=== PATIENT | male | born 1945 | race Caucasian/White ===

== ENCOUNTER 2016-12-20 06:21 | Inpatient (IN) | payer MEDICARE, BC ==
[2016-12-13 20:05] LABS: HEMATOCRIT 44.8 % (40.0-51.0); HEMOGLOBIN 15.1 g/dL (13.6-17.8)
[2016-12-13 20:19] LABS: CHLORIDE, SERUM 105 MMOL/L (96-112); CO2 (CARBON DIOXIDE) 25 MMOL/L (24-34); CREATININE 1.19 MG/DL (0.70-1.30); GFR AFRICAN AMERICAN 70 ML/MIN (>=60); GFR NON AFRICAN AMERICAN 61 ML/MIN (>=60); GLUCOSE, SERUM 81 MG/DL (60-99); POTASSIUM, SERUM 4.5 MMOL/L (3.5-5.3); SODIUM, SERUM 142 MMOL/L (135-148)
[2016-12-13 20:21] LABS: BUN (BLOOD UREA NITROGEN) 25 MG/DL (6-23); CALCIUM, SERUM 9.7 MG/DL (8.5-10.4)
--- NOTE | ~2016-12-20 | CN ---
Consultation Report [address] [place]. [address] NAME: HIPOLITO PUTNAM : 43 STATUS : ADM IN PAT#: [id number] AGE: 71 ADM/REG DATE : 12/20/16 MR#: [id number] REPORT SERV DATE: 12/23/16 DICTATED BY: EDNA GUNN DATE: 12/22/16 REPORT STATUS : Draft TRANSCRIBED BY: MODL DATE: 12/22/16 HOSPITALIST CONSULTATION DATE OF CONSULTATION: 12/21/2016 REASON FOR CONSULTATION: Hypertension per Dr. Nuñez. HISTORY OF PRESENT ILLNESS: This is an awake, alert, and oriented pleasant 71-year-old male, who was admitted to Dr. Oscar Nuñez on 12/20/2016 for lumbar fusion and L3- L4/L5-S1 facetectomy. We have been asked to see him at this time for management of persistent high blood pressure. The patient is currently taking his home medication lisinopril for hypertension and reports no difficulty in taking this medication. At this time, he is complaining only of back pain related to his most recent surgery as well as constipation with bloating in his abdomen. He says his last bowel movement was on 12/19/2016. At this time, he denies chest pain, palpitations, dyspnea, headache, dizziness, nausea, and vomiting. PAST MEDICAL HISTORY: Significant for: 1. Hypertension. 2. Bilateral cataracts. 3. Arthritis. 4. Low back pain. 5. Right lower extremity radiculopathy. 6. Esophagitis. 7. GERD. 8. Hypothyroidism. PAST SURGICAL HISTORY: Significant for: 1. Right leg vein stripping, 2010. 2. EGD with esophageal dilation, 2011. 3. Colonoscopy, 2016. 4. Left toe surgery, 2012. 5. Right knee scope, 2010. 6. Right inguinal hernia repair, 2006. 7. Appendectomy, age 17. 8. Tonsillectomy, age 5. 9. Right TKA, 2012. 10.Bilateral carpal tunnel release, 2006. 11.Rhinoplasty, 2009. 12.Lumbar fusion, 2014. 13.Lumbar fusion with facetectomy, 12/20/2016. The patient's PCP is Dr. Kwan, who he see every 6 months. SOCIAL HISTORY: The patient is and retired. Lives at home with his . Reports Consultation Report [facility] [address] [place]. [address] NAME: HIPOLITO PUTNAM : 43 STATUS : ADM IN PAT#: [id number] AGE: 71 ADM/REG DATE : 12/20/16 MR#: [id number] REPORT SERV DATE: 12/23/16 DICTATED BY: EDNA GUNN DATE: 12/22/16 REPORT STATUS : Draft TRANSCRIBED BY: MODL DATE: 12/22/16 smoking cigarettes for 45 years with a quit date of 2009. He drinks alcohol socially, less than 2 drinks weekly and denies illicit drug use. FAMILY HISTORY: Mother had a history of low blood sugar and father had a history of hiatal hernia. ALLERGIES: 1. OXYCODONE. 2. WASP STINGS. HOME MEDICATIONS: 1. Levothyroxine 75 mcg p.o. every morning. 2. Lisinopril 20 mg p.o. daily. 3. Testosterone cypionate 100 mg IM every 2 weeks. 4. Tylenol 325 mg p.o. q.4 hours p.r.n. 5. Daily vitamin. REVIEW OF SYSTEMS: A complete 10-point review of systems was negative except as per HPI. PHYSICAL EXAMINATION: VITAL SIGNS: T 97.6, P 105, RR 14, BP 133/84, and SpO2 of 94% on 2 L nasal cannula. GENERAL: A well-appearing male in no acute distress. Note, the patient is on strict bed rest with head of bed flat per Ortho order. Lumbar surgical dressing clean, dry, and intact. YISEL drain - lumbar - to bulb suction. NEUROLOGIC: Awake, alert, and oriented x3 without focal deficit. HEENT: Normocephalic and atraumatic without lymphadenopathy. NECK: Supple. No JVD. LUNGS: CTA in all lung leiva with normal respiratory effort. CV: Regular rate and rhythm. S1, S2 auscultated without murmur, rub, gallop, or click. ABDOMEN: Soft, round, nontender, and mildly distended. Bowel sounds active in all quadrants. No masses. EXTREMITIES: No cyanosis or edema. Cap refill within normal limits. Normal distal pulses. PSYCHIATRIC: Normal affect. SKIN: Clean, dry, and intact with mucous membranes pink and moist. ASSESSMENT AND PLAN: 1. Hypertension. This is chronic, and the patient has had his home medications continued. We will add p.r.n. coverage and monitor his labs at this time. Ensure pain control. 2. Constipation, this is acute, we will continue his current bowel regimen and we will add Reglan before every meal and at every bedtime and monitor. 3. GERD, this is chronic, and we will continue his current medications including the p.r.n. medications. We will add Reglan as mentioned above and monitor his labs. 4. Hypothyroid, this is chronic and well controlled. He follows with his PCP regularly every 6 months with recent lab work. We will continue his current treatment and Consultation Report [facility] [address] [place]. [address] NAME: HIPOLITO PUTNAM : 43 STATUS : ADM IN [facility]#: [id number] AGE: 71 ADM/REG DATE : 12/20/16 MR#: [id number] REPORT SERV DATE: 12/23/16 DICTATED BY: EDNA GUNN DATE: 12/22/16 REPORT STATUS : Draft TRANSCRIBED BY: MODL DATE: 12/22/16 monitor his labs. 5. Post lumbar fusion, he is postop day #1, and we will defer to the primary team for management of this issue. Thank you for this consult. We are pleased to follow this patient with you. This consult was completed through thorough review of [employer], old records, [employer], current chart, and through thorough interview with the patient. ADDENDUM: At 0500, stat KUB was done for increasing abdominal distention, reviewed by Dr. Zhou, supervising physician, who ordered NG tube to low intermittent wall suction for ileus. [facility]/JINNY Edna Gunn NP / [id number] CC: Narcisa Ann II, MD
--- NOTE | ~2016-12-20 | CN ---
Consultation Report [facility] [address] [place]. [address] NAME: HIPOLITO PUTNAM : 43 STATUS : ADM IN [facility]#: [id number] AGE: 71 ADM/REG DATE : 12/20/16 MR#: [id number] REPORT SERV DATE: 12/23/16 DICTATED BY: ELLA COBB DATE: 12/22/16 REPORT STATUS : Draft TRANSCRIBED BY: MODL DATE: 12/22/16 CONSULTATION DATE OF CONSULTATION: REASON FOR EVALUATION: Colonic ileus. HISTORY OF PRESENT ILLNESS: Mr. Putnam is a very pleasant 71-year-old man who has been in good health. He underwent surgical therapy for radiculopathy and spinal stenosis this admission. He has experienced a CSF leak. He has developed an ileus with distention of the abdomen yesterday associated with nausea. Attempts were made by multiple nursing staff and subsequently by the radiologist to pass an NG tube, including a 10-Turkmen tube which was not successful. He has passed flatus today, with some improvement in his distention. He has not had a bowel movement. He does not experience constipation at home. He has undergone colonoscopy by a provider in the [facility] as recently as this year with no history of obstruction. PAST MEDICAL HISTORY: He has had orthopedic surgical procedures and a right inguinal hernia repair but has otherwise been in good health. He has hypothyroidism and hypertension. ALLERGIES: OXYCODONE AND WASP STINGS. SOCIAL HISTORY: He uses occasional alcohol. He has a remote history of smoking. FAMILY HISTORY: Noncontributory. PHYSICAL EXAMINATION: GENERAL: Reveals a man who appears younger than his stated age. Resting on his left side. In no acute distress. Afebrile. Skin is warm and dry. HEENT: No icterus. CHEST: Clear to auscultation. CARDIAC: Regular rate and rhythm. Normal S1, S2. GASTROINTESTINAL: Abdomen is mildly distended. Bowel sounds are present but decreased. There are some palpable loops in the upper abdomen, however, it is soft and without tenderness. EXTREMITIES: Warm with intact pulses. LABORATORY DATA: Sodium 138, potassium 3.4, BUN 11, creatinine 0.85, magnesium not done, calcium 8.4. White blood cell count 14.8, hemoglobin 16, and platelets 204,000. KUB demonstrates constipation with some distention of the small bowel and colon. No intraperitoneal air. IMPRESSION: Colonic ileus with constipation. Mild hypokalemia, decreased mobility, and Dilaudid are likely contributors. Consultation Report [facility] [address] [place]. [address] NAME: HIPOLITO PUTNAM : 43 STATUS : ADM IN PAT#: [id number] AGE: 71 ADM/REG DATE : 12/20/16 MR#: [id number] REPORT SERV DATE: 12/23/16 DICTATED BY: ELLA COBB DATE: 12/22/16 REPORT STATUS : Draft TRANSCRIBED BY: JINNY DATE: 12/22/16 RECOMMENDATION: 1. Milk of magnesia, followed by p.o. fluids for osmotic effect. 2. Dulcolax suppository followed by warm tap water enema. 3. If above is unsuccessful, we will plan single dose of methylnaltrexone. 4. Correct potassium. Thank you for asking me to participate in his management. This management plan was discussed with the patient who agrees. [facility]/JINNY Ella Cobb M.D. / [id number] CC: Narcisa Ann II, MD
--- NOTE | ~2016-12-20 | OP ---
Record Of Operation [facility] [address] [place]. [address] NAME: HIPOLITO PUTNAM : 43 STATUS : ADM IN PAT#: [id number] AGE: 71 ADM/REG DATE : 12/20/16 MR#: [id number] REPORT SERV DATE: 12/23/16 DICTATED BY: JESSICA NUÑEZ II DATE: 12/22/16 REPORT STATUS : Draft TRANSCRIBED BY: MODNova DATE: 12/22/16 DATE OF PROCEDURE: 12/20/2016 PREOPERATIVE DIAGNOSES: 1. History of L4-5 fusion. 2. L3-4 stenosis. 3. Mild L5-S1 stenosis. 4. Severe right lower extremity radiculopathy. POSTOPERATIVE DIAGNOSES: 1. History of L4-5 fusion. 2. L3-4 stenosis. 3. Mild L5-S1 stenosis. 4. Severe right lower extremity radiculopathy. PROCEDURES: 1. Lumbar laminectomy and facetectomy for decompression of the L3 and L4 nerve roots. 2. Posterolateral arthrodesis L3-L4. 3. Hardware removal, L4-5. 4. Instrumentation, nonsegmental L3-4. 5. Use of local autograft, allograft substitute, and bone morphogenic protein. 6. Use of the microscope and stereotactic spinal imaging. FLUIDS: 2 L lactated Ringer's. ESTIMATED BLOOD LOSS: 75 mL. DRAINS: One drain. COMPLICATIONS: Far lateral durotomy. PREOPERATIVE HISTORY: A 71-year-old gentleman, who lives in [place] with his who is overall quite active. He has been having severe pain in the right leg. He was found to have an L3-4 stenosis with an HNP. We had also found that he had significant facet arthrosis at L5-S1, but overall no severe neural compression. We had consented him for an L3-4 and L5-S1 facetectomy and fusion, but I was able to discuss with him in preoperative holding prior to sedation exactly his dermatomal area of pain. His pain was not consistent with L5-S1, but very classic for L3-4. I discussed with him that I felt L3-4 would likely be the only level we had to work on given his complaints and the fact that from an MRI standpoint, the stenosis was much more significant at L3-4. After we discussed the risks and benefits of the surgery, the intraoperative surgery was discussed. He had had a very similar surgery done at L4-5 and done very well. DESCRIPTION OF PROCEDURE: After informed consent was obtained, the patient was brought to the operating room at his request and general anesthesia achieved. He was placed in the prone position and the back was prepped and draped in a sterile fashion. The stereotactic Record Of Operation [facility] [address] [place]. [address] NAME: HIPOLITO PUTNAM : 43 STATUS : ADM IN PAT#: [id number] AGE: 71 ADM/REG DATE : 12/20/16 MR#: [id number] REPORT SERV DATE: 12/23/16 DICTATED BY: JESSICA NUÑEZ II DATE: 12/22/16 REPORT STATUS : Draft TRANSCRIBED BY: JINNY DATE: 12/22/16 spinal pin was placed on the left and the intraoperative CT scan completed. The stereotactic guidance was then used throughout the case. Next, on the right side, we then performed a right-sided approach and the hardware removed at L4-5 on the right. The stereotactic guidance was also used to place the quadrant retractor at L3-4. The microscope was now brought into place and under microscopic visualization, the facet was now removed. The spinal laminar junction was now taken down and the central canal and lateral recess well decompressed. During the process of this, I initially recognized along the very lateral aspect of the dura at L3-4 on the right that the dura was very thin. There was no violation of the dura, but again it seemed to be much more thin and translucent. At this point, we had now decompressed the L3 and L4 nerve roots by removing the entirety of the facet. At this point, we then retracted the L4 nerve root along with the lateral edge of the dura. This was done so as we could remove a small piece of disk. At this point, we then began working into the disk space for the interbody arthrodesis. Unfortunately, at this point, this area of thin dura did have a violation and we saw the CSF. There was no extravasation of nerve roots. However, given the extreme lateral location and bordering on anterolateral location, I did not feel I could place a proper suture for a primary repair. At this point, I felt the best course of action was to abort the interbody arthrodesis as I felt that additional retraction of the area could worsen the tear. This appeared to be an approximately 2-3 mm tear. At this point, we then placed the pedicle screws into L3 and L4. The darrell was then final tightened. The decortication was now performed on the right at L3-4. The transverse processes were decorticated followed by placement of local autograft, allograft substitute, and bone morphogenic protein. Next, we then placed a DuraGen patch. We were able to place a fairly large patch to essentially wrap the dura from the dorsal to the anterolateral aspect. I was able to now place a portion of fat and fascia over also the patch and hopefully place some compression over this area along with the DuraSeal in hopes of being able to maintain this repair. At this point, the percutaneous screws were placed on the left. Again, we had to remove a portion of the hardware. The L3 screw was placed percutaneously. We then removed the L4 screw and then attached the new darrell to the previous L5 screw to the new L3 screw. Final tightening was performed. Again, the repeat CT scan confirmed acceptable placement of the implants. At this point, a watertight closure was performed on the right side over a drain. Standard dressings were applied. The patient was then extubated and transferred to PACU in stable condition. The plan would be for bedrest for approximately 48 hours. I discussed this extensively with his and his son postoperatively. I discussed with them the fact that his leg should be improved with regard to his radiculopathy. We did discuss the durotomy at length and discussed the possible issues with this and the potential need for a CSF diverting drain and/or an additional attempt at repair as needed. Record Of Operation [facility] [id number] [facility] [place]. [address] NAME: HIPOLITO PUTNAM : 43 STATUS : ADM IN PAT#: [id number] AGE: 71 ADM/REG DATE : 12/20/16 MR#: [id number] REPORT SERV DATE: 12/23/16 DICTATED BY: JESSICA NUÑEZ II DATE: 12/22/16 REPORT STATUS : Draft TRANSCRIBED BY: JINNY DATE: 12/22/16 [facility]/JINNY Jessica Nuñez II, M.D. / [id number] CC: Narcisa Ann II, MD
--- NOTE | ~2016-12-20 | DS ---
Discharge Summary [facility] [address] [place]. [address] NAME: HIPOLITO PUTNAM : 43 STATUS : DIS IN PAT#: [id number] AGE: 71 ADM/REG DATE : 12/20/16 MR#: [id number] REPORT SERV DATE: 01/07/17 DICTATED BY: JESSICA NUÑEZ II DATE: 01/06/17 REPORT STATUS : Draft TRANSCRIBED BY: JINNY DATE: 01/06/17 Data Collection from hospitalization DISCHARGE DIAGNOSES: 1. History of L4-5 fusion. 2. L3-4 stenosis. 3. Mild L5-S1 stenosis. 4. Severe right lower extremity radiculopathy. 5. Hypertension. 6. Hypothyroidism. 7. Bilateral cataracts. 8. Gastroesophageal reflux disease. 9. Arthritis. CONSULTATIONS: 1. Ella Cobb M.D. 2. Edna Gunn NP. PROCEDURES PERFORMED: Lumbar laminectomy and facetectomy for decompression of L3 and L4 nerve roots; posterolateral arthrodesis, L3-L4; hardware removal, L4-5; instrumentation, nonsegmental, L3-4; use of local autograft, allograft substitute, and bone morphogenic protein; use of microscope and stereotactic spinal imaging, 12/20/2016. PATHOLOGY: Tissue from L3-S1 - benign skeletal muscle and soft tissue. Benign bone and cartilage with focal degenerative changes. Focal osteoclastic resorption. DISCHARGE MEDICATIONS: Tylenol 325 mg every four hours as needed, levothyroxine 75 mcg every morning, Zestril 30 mg daily, testosterone cypionate every two weeks as instructed, vitamin/herb/supplements as instructed. CONDITION AT DISCHARGE: Stable. DISPOSITION: The patient was discharged home on a clear liquid diet with activities as instructed. He will follow up with me on 01/13/[address] Kwan in 7 to 10 days following discharge. HOSPITAL COURSE: This is a 71-year-old man who complained of lumbar spine related symptoms. These symptoms were located in the low back radiating down his right lower extremity and was constant. The patient reports that they were last seen in the office two weeks prior to this admission. When asked about the severity level of the symptoms, the patient reported the pain level as 7 on a scale of 0-10. The patient has a history of L4-5 fusion and L3-4 stenosis. He has mild L5-S1 stenosis and right lower extremity severe radiculopathy. Treatment options were discussed, and it was elected to proceed with surgical intervention. He was admitted to the hospital at this time for further evaluation and treatment. Upon admission, he was taken to the operating room where he underwent the above-mentioned procedure. He tolerated this well. There were no complications. On postop day 1, he had a mild headache the previous evening due to stress overnight. He denied any headache at this Discharge [address] [address] NAME: HIPOLITO PUTNAM : 43 STATUS : DIS IN PAT#: [id number] AGE: 71 ADM/REG DATE : 12/20/16 MR#: [id number] REPORT SERV DATE: 01/07/17 DICTATED BY: JESSICA NUÑEZ II DATE: 01/06/17 REPORT STATUS : Draft TRANSCRIBED BY: JINNY DATE: 01/06/17 time. YISEL drain remained in place. Diet was advanced. Kelly catheter and YISEL drain remained in place. He was seen by Edna Gunn regarding hypertension. The patient was currently taking his home medication lisinopril for hypertension, and reported no difficulty in taking this medication. At this time, he was complaining only of back pain related to his most recent surgery as well as constipation with bloating in his abdomen. His last bowel movement was on 12/19/2016. At this time, he denied chest pain, palpitations, dyspnea, headache, dizziness, nausea, or vomiting. As needed coverage will be added to his regimen. We would ensure adequate pain control. His current gastroesophageal reflux disease medications were continued. Reglan was added. On the , the patient said he felt miserable due to nausea and a distended abdomen. He remained n.p.o., medications were going to be adjusted. The following day, his leg pain had decreased, he remained stable. We encouraged him to mobilize. Ileus was resolving. He was seen by Dr. Ella Cobb regarding colonic ileus. He had undergone surgical therapy for radiculopathy and spinal stenosis. This admission, he had experienced a cerebrospinal fluid leak. He had developed an ileus with distention of the abdomen associated with nausea. Attempts were made by multiple nursing staff and subsequently by the radiologist passing the NG tube, including a 10-Yakut tube which was not successful. He had started to pass flatus earlier the day with some improvement in his distention. He has not had a bowel movement. He does not experience constipation at home. He had undergone a colonoscopy by a provider in the [facility] as recently as this year with no history of obstruction. He was felt to have colonic ileus with constipation. He has mild hypokalemia. It was felt that decreased mobility, mild hypokalemia, and Dilaudid were likely contributors. Milk of magnesia was going to be given as well as oral fluids for osmotic effects. Dulcolax suppository would be given followed by a warm tap water enema. If these methods were unsuccessful, we would plan a single dose of methylnaltrexone. We will correct his potassium. On 12/24/2016, he had been evaluated by Physical Therapy. He was doing well, was tolerating a liquid diet. He had no nausea, vomiting, or abdominal pain. White count was 13. His diet would be advanced once he was moving his bowels. Reglan, Colace, and Dulcolax were continued. We encouraged him to walk as much as possible. MiraLAX was given. We would keep his electrolytes corrected. he did have a bowel movement. He was beginning to ambulate in the gunn. He did void after the Kelly catheter was removed. Over the next couple of days, he continued to progress. His bowels were moving. He denied nausea or vomiting. He was ambulating in the halls. We advanced his diet. Lisinopril dose was increased. Reglan had been resumed. On 12/26/2016, he was alert and cooperative. He had a normal respiratory effort. He has had significant interval improvement and the overall bowel gas pattern on KUB. He had a markedly reduced quantity of bowel gas that he felt great, he was wanting to go home. We were going to continue the increased dose of lisinopril. Discharge instructions were given. Due to his improved and stable condition, he was discharged home with the above-stated instructions. Information collected by: Vanessa Seals I submit the above information as my discharge summary. TG/MODL Discharge Summary [facility] [address] [facility] [place]. [address] NAME: HIPOLITO PUTNAM : 43 STATUS : DIS IN PAT#: [id number] AGE: 71 ADM/REG DATE : 12/20/16 MR#: [id number] REPORT SERV DATE: 01/07/17 DICTATED BY: JESSICA NUÑEZ II DATE: 01/06/17 REPORT STATUS : Draft TRANSCRIBED BY: JINNY DATE: 01/06/17 Jessica Nuñez II, M.D. / [id number] CC: Narcisa Ann II, Dr., M.D.
[~2016-12-20 06:21] MED LIST: ALEVE220 MG PO; ASA5GR PO; DEPO-TESTOS100 MG/ML IM; DIL2TAB PO; FISH-EPA1000 MG PO; LEVOTHYROXIN75 MCG PO; MSCONT15 PO; MULTIPLE VIT PO; NAP500 PO; PRIN20 PO; PROBIOTICS PO; SUPER B-100 PO; T PO; TESTOST CYP100 MG/ML IM; ULTRAM50 PO; V5 PO; VITAMIN D1000 UNI1 PO; VITS/HERBS/SUPPLEMEN; ZINC PO
[2016-12-22 05:23] LABS: HEMATOCRIT 44.2 % (40.0-51.0); HEMOGLOBIN 16.1 g/dL (13.6-17.8); MEAN CORPUS HGB CONC 36.4 g/dL (32.0-36.0); MEAN CORPUSCULAR HEMOGLOB 33.5 pg (26.0-34.0); MEAN CORPUSCULAR VOLUME 91.9 fL (80-100); MEAN PLATELET VOLUME 9.9 fL (9.2-13.0); PLATELET COUNT 204 10/3/uL (150-400); RBC DISTRIBUTION WIDTH 13.1 % (12.0-16.0); RED CELL COUNT 4.81 10/6/uL (4.7-6.1)
[2016-12-22 05:25] LABS: MANUAL DIFF YES %; WHITE BLOOD CELLS 14.8 10/3/uL (4.5-10.5)
[2016-12-22 05:37] LABS: ALBUMIN 3.4 G/DL (3.5-5.0); CHLORIDE, SERUM 101 MMOL/L (96-112); CO2 (CARBON DIOXIDE) 27 MMOL/L (24-34); CREATININE 0.85 MG/DL (0.70-1.30); GFR AFRICAN AMERICAN 101 ML/MIN (>=60); GFR NON AFRICAN AMERICAN 87 ML/MIN (>=60); SGOT(AST) 23 U/L (5-40); SGPT(ALT) 31 U/L (5-65); SODIUM, SERUM 138 MMOL/L (135-148); TOTAL BILIRUBIN 0.7 MG/DL (0-1.2); TOTAL PROTEIN 6.9 G/DL (6.0-8.5)
[2016-12-22 05:40] LABS: ALKALINE PHOSPHATASE 77 U/L (45-117); BUN (BLOOD UREA NITROGEN) 11 MG/DL (6-23); CALCIUM, SERUM 8.4 MG/DL (8.5-10.4); GLOBULIN 3.5 G/DL (2.5-4.1); GLUCOSE, SERUM 130 MG/DL (60-99); POTASSIUM, SERUM 3.4 MMOL/L (3.5-5.3)
[2016-12-22 05:59] LABS: IMMATURE GRANS ABSOLUTE (CALC) 0.15 10/3/uL (0.0-0.11); LYMPHOCYTES 12 %; LYMPHOCYTES ABSOLUTE (CALC) 1.78 10/3/uL (0.67-4.30); MONOCYTES 8 %; MONOCYTES ABSOLUTE (CALC) 1.18 10/3/uL (0.21-1.20); MYELOCYTES 1 %; NEUTROPHILS ABSOLUTE (CALC) 11.69 10/3/uL (2.02-8.40); PLATELET ESTIMATE ADQ (ADEQUATE); RBC MORPHOLOGY NORM (NORMAL); SEGMENTED NEUTROPHIL (0) 79 %; TOTAL NUCLEATED CELLS 100
[2016-12-22 14:00] LABS: ASCORBIC ACID (UR NOT ORDER) NEG (NEG); BILIRUBIN, URINE NEGATIVE (NEG); KETONE, URINE TRACE MG/DL (NEG); LEUKOCYTE ESTERASE(NOT OR TRACE (NEG); WBC (NOT ORDERED) (RFLEX) 3 (0-5)
[2016-12-23 05:08] LABS: HEMATOCRIT 45.2 % (40.0-51.0); HEMOGLOBIN 16.1 g/dL (13.6-17.8); MEAN CORPUS HGB CONC 35.6 g/dL (32.0-36.0); MEAN CORPUSCULAR HEMOGLOB 32.7 pg (26.0-34.0); MEAN CORPUSCULAR VOLUME 91.9 fL (80-100); MEAN PLATELET VOLUME 9.7 fL (9.2-13.0); PLATELET COUNT 220 10/3/uL (150-400); RBC DISTRIBUTION WIDTH 12.9 % (12.0-16.0); RED CELL COUNT 4.92 10/6/uL (4.7-6.1); WHITE BLOOD CELLS 13.4 10/3/uL (4.5-10.5)
[2016-12-23 05:09] LABS: MANUAL DIFF YES %
[2016-12-23 05:34] LABS: LYMPHOCYTES 7 %; LYMPHOCYTES ABSOLUTE (CALC) 0.94 10/3/uL (0.67-4.30); MONOCYTES 12 %; MONOCYTES ABSOLUTE (CALC) 1.61 10/3/uL (0.21-1.20); NEUTROPHILS ABSOLUTE (CALC) 10.85 10/3/uL (2.02-8.40); SEGMENTED NEUTROPHIL (0) 81 %; TOTAL NUCLEATED CELLS 100
[2016-12-23 05:35] LABS: BUN (BLOOD UREA NITROGEN) 10 MG/DL (6-23); CHLORIDE, SERUM 99 MMOL/L (96-112); CO2 (CARBON DIOXIDE) 28 MMOL/L (24-34); CREATININE 0.89 MG/DL (0.70-1.30); GFR AFRICAN AMERICAN 99 ML/MIN (>=60); GFR NON AFRICAN AMERICAN 85 ML/MIN (>=60); GLUCOSE, SERUM 117 MG/DL (60-99); PLATELET ESTIMATE ADQ (ADEQUATE); POTASSIUM, SERUM 3.4 MMOL/L (3.5-5.3); RBC MORPHOLOGY NORM (NORMAL); SODIUM, SERUM 136 MMOL/L (135-148); ULTRASENSITIVE TSH 0.547 MCIU/ML (0.358-3.740)
[2016-12-24 05:04] LABS: BUN (BLOOD UREA NITROGEN) 11 MG/DL (6-23); CALCIUM, SERUM 7.8 MG/DL (8.5-10.4); CHLORIDE, SERUM 100 MMOL/L (96-112); CO2 (CARBON DIOXIDE) 25 MMOL/L (24-34); CREATININE 0.86 MG/DL (0.70-1.30); GFR AFRICAN AMERICAN 100 ML/MIN (>=60); GFR NON AFRICAN AMERICAN 87 ML/MIN (>=60); GLUCOSE, SERUM 121 MG/DL (60-99); POTASSIUM, SERUM 3.4 MMOL/L (3.5-5.3); SODIUM, SERUM 135 MMOL/L (135-148)
[2016-12-25 04:51] LABS: BASOPHILS 0.1 %; BASOPHILS ABSOLUTE 0.01 10/3/uL (0.0-0.16); EOSINOPHILS 0.8 %; EOSINOPHILS ABSOLUTE 0.06 10/3/uL (0.0-0.53); HEMOGLOBIN 13.4 g/dL (13.6-17.8); IMMATURE GRANULOCYTES 0.3 %; IMMATURE GRANULOCYTES ABSOLUTE 0.02 10/3/uL (0.0-0.11); LYMPHOCYTES 12.7 %; LYMPHOCYTES ABSOLUTE 0.94 10/3/uL (0.67-4.30); MEAN CORPUS HGB CONC 35.4 g/dL (32.0-36.0); MEAN CORPUSCULAR HEMOGLOB 32.9 pg (26.0-34.0); MEAN CORPUSCULAR VOLUME 92.9 fL (80-100); MEAN PLATELET VOLUME 9.4 fL (9.2-13.0); MONOCYTES 16.4 %; MONOCYTES ABSOLUTE 1.22 10/3/uL (0.21-1.20); NEUTROPHILS 69.7 %; NEUTROPHILS ABSOLUTE 5.18 10/3/uL (2.02-8.40); PLATELET COUNT 184 10/3/uL (150-400); RBC DISTRIBUTION WIDTH 13.1 % (12.0-16.0); RED CELL COUNT 4.07 10/6/uL (4.7-6.1)
[2016-12-25 04:58] LABS: HEMATOCRIT 37.8 % (40.0-51.0); MANUAL DIFF NO %; WHITE BLOOD CELLS 7.4 10/3/uL (4.5-10.5)
[2016-12-25 05:15] LABS: BUN (BLOOD UREA NITROGEN) 10 MG/DL (6-23); CALCIUM, SERUM 7.4 MG/DL (8.5-10.4); CHLORIDE, SERUM 105 MMOL/L (96-112); CO2 (CARBON DIOXIDE) 27 MMOL/L (24-34); CREATININE 0.78 MG/DL (0.70-1.30); GFR AFRICAN AMERICAN 105 ML/MIN (>=60); GFR NON AFRICAN AMERICAN 90 ML/MIN (>=60); GLUCOSE, SERUM 101 MG/DL (60-99); POTASSIUM, SERUM 3.5 MMOL/L (3.5-5.3); SODIUM, SERUM 140 MMOL/L (135-148)
[2016-12-26 04:53] LABS: BASOPHILS 0.1 %; BASOPHILS ABSOLUTE 0.01 10/3/uL (0.0-0.16); EOSINOPHILS 3.3 %; EOSINOPHILS ABSOLUTE 0.23 10/3/uL (0.0-0.53); HEMATOCRIT 36.6 % (40.0-51.0); HEMOGLOBIN 12.9 g/dL (13.6-17.8); IMMATURE GRANULOCYTES 0.3 %; IMMATURE GRANULOCYTES ABSOLUTE 0.02 10/3/uL (0.0-0.11); LYMPHOCYTES 15.1 %; LYMPHOCYTES ABSOLUTE 1.04 10/3/uL (0.67-4.30); MEAN CORPUS HGB CONC 35.2 g/dL (32.0-36.0); MEAN CORPUSCULAR HEMOGLOB 32.7 pg (26.0-34.0); MEAN CORPUSCULAR VOLUME 92.7 fL (80-100); MEAN PLATELET VOLUME 9.4 fL (9.2-13.0); MONOCYTES 14.9 %; MONOCYTES ABSOLUTE 1.03 10/3/uL (0.21-1.20); NEUTROPHILS 66.3 %; NEUTROPHILS ABSOLUTE 4.57 10/3/uL (2.02-8.40); PLATELET COUNT 180 10/3/uL (150-400); RBC DISTRIBUTION WIDTH 13.1 % (12.0-16.0); RED CELL COUNT 3.95 10/6/uL (4.7-6.1); WHITE BLOOD CELLS 6.9 10/3/uL (4.5-10.5)
[2016-12-26 04:54] LABS: MANUAL DIFF NO %
[2016-12-26 05:09] LABS: BUN (BLOOD UREA NITROGEN) 10 MG/DL (6-23); CALCIUM, SERUM 7.6 MG/DL (8.5-10.4); CHLORIDE, SERUM 106 MMOL/L (96-112); CO2 (CARBON DIOXIDE) 26 MMOL/L (24-34); CREATININE 0.79 MG/DL (0.70-1.30); GFR AFRICAN AMERICAN 104 ML/MIN (>=60); GFR NON AFRICAN AMERICAN 90 ML/MIN (>=60); GLUCOSE, SERUM 88 MG/DL (60-99); POTASSIUM, SERUM 3.7 MMOL/L (3.5-5.3); SODIUM, SERUM 142 MMOL/L (135-148)
[2016-12-26] MEDS ORDERED: ZESTRIL30 MG PO (12:54)
== END 2016-12-26 13:29 | disposition home or self-care (01) | DRG 460 ==
LOC: SDC/OF 06:21 → PACU 13:08 → 3SO 16:03
PROVIDERS: Internal Medicine; Nurse Practitioner; Nurse Practitioner Family; Orthopaedic Surgery
PROC: 0SG0071 Fusion of Lumbar Vertebral Joint with Autologous Tissue Substitute, Posterior Approach, Posterior Column, Open Approach (ICD-10-PCS; principal; 2016-12-20 08:00)
PROC: 0SP004Z Removal of Internal Fixation Device from Lumbar Vertebral Joint, Open Approach (ICD-10-PCS; 2016-12-20 08:00)
PROC: 00UT0JZ Supplement Spinal Meninges with Synthetic Substitute, Open Approach (ICD-10-PCS; 2016-12-20 08:00)
PROC: 4A11X4G Monitoring of Peripheral Nervous Electrical Activity, Intraoperative, External Approach (ICD-10-PCS; 2016-12-20 08:00)
DX: M51.17 Intervertebral disc disorders with radiculopathy, lumbosacral region (principal); G96.0 Cerebrospinal fluid leak; I10 Essential (primary) hypertension; K91.3 Postprocedural intestinal obstruction; K21.9 Gastro-esophageal reflux disease without esophagitis; E03.9 Hypothyroidism, unspecified; E87.6 Hypokalemia; Z53.8 Procedure and treatment not carried out for other reasons
CPT/HCPCS: 43761; 74000; 76000; 80048; 80053; 81001; 82962; 83735; 84132; 84443; 85014; 85018; 85025; 87641; 88300; 88304; 88311; 93005; 97110-GP; 97116-GP; 97161-GP; A9270-GY; C1713; C1768; C9113; G8978-CJ-GP; G8979-CH-GP; J0360; J0690; J2250; J2270; J2405; J2765; J3010